=== PATIENT | female | born 1955 | race Two or more races ===

== ENCOUNTER → 2017-12-02 | Outpatient (CLI) | payer BC ==
[~2017-12-02] MED LIST: NITROGLYCERIN AEROSOL (4.9 GM)
[2017-12-02] MEDS: SOD CHLORIDE 0.9% 100 ML (11:34)
[2017-12-02] MEDS: IOHEXOL 100 ML (11:35)
[2017-12-02] MEDS: IOHEXOL 350MG/ML 50 ML BTL (11:36)
== END | disposition home or self-care (01) ==
LOC: C/S 09:41
DX: R07.9 Chest pain, unspecified (principal)
CPT/HCPCS: 75571; 75574

== ENCOUNTER 2018-03-12 12:28 | Day surgery (SDC) | payer BC ==
[2018-03-12] MEDS ORDERED: FENTAnyl 50 MCG/ML VIAL (15:03)
[2018-03-12] MEDS ORDERED: MIDAZOLAM 1 MG/ML 2 ML INJ (15:03)
[2018-03-12] MEDS ORDERED: PROPOFOL 20 ML (15:03)
== END 2018-03-12 16:25 | disposition home or self-care (01) ==
LOC: GIL 12:28
DX: R10.9 Unspecified abdominal pain (principal); R19.7 Diarrhea, unspecified; R14.0 Abdominal distension (gaseous)
CPT/HCPCS: 43235

== ENCOUNTER 2018-04-06 10:38 | Emergency (ER) | payer MEDICARE, BC ==
[2018-04-06] MEDS: LORAZEPAM 0.5 MG TAB PO (11:36)
[2018-04-06] MEDS: KETOROLAC 60 MG INJ IM (11:37)
[2018-04-06] MEDS: DEXAMETHASONE 4 MG TAB PO (11:56)
[2018-04-06 12:01] LABS: URINE BLOOD (Dip) POC Negative (NEGATIVE); URINE GLUCOSE (Dip) POC Negative (NEGATIVE); URINE KETONES (Dip) POC Negative (NEGATIVE); URINE LEUKOCYTE EST (Dip) POC Negative (NEGATIVE); URINE NITRITE (Dip) POC Negative (NEGATIVE); URINE TOTAL PROTEIN POC Negative (NEGATIVE)
[2018-04-06 12:01] LABS: URINE PH (Dip) POC 5.5 (5.0-8.5)
== END 2018-04-06 12:55 | disposition home or self-care (01) ==
LOC: FTE 10:38
DX: M54.5 Low back pain (principal); I10 Essential (primary) hypertension
CPT/HCPCS: 81003; 96372; 99284-25